=== PATIENT | male | born 1955 | race Caucasian/White ===

== ENCOUNTER 2019-05-13 15:09 | Inpatient (IN) | payer MEDICARE ==
[~2019-05-13] VITALS: Ht 177.8 cm; Wt 90.7 kg
[2019-05-13] MEDS ORDERED: TRAZODONE 150150 M1 PO (15:23)
[2019-05-13] MEDS ORDERED: LISINOPRIL20 MG PO (15:23)
[2019-05-13] MEDS ORDERED: DICLOFENAC SODI25 MG PO (15:24)
[2019-05-13] MEDS ORDERED: LIPITOR 20 MG T20 M1 PO (15:25)
[2019-05-13 15:38] LABS: BE -1.2 mmol/L (-2 to +3); PO2 70.8 mmHg (75.0-100.0); pH 7.355 (7.340-7.450)
[2019-05-13 15:58] LABS: ABSOLUTE BASOPHILS 0.1 thou/uL (0.0-0.2); ABSOLUTE EOSINOPHILS 0.1 thou/uL (0.0-0.7); ABSOLUTE LYMPHOCYTES 1.5 thou/uL (0.8-5.3); ABSOLUTE MONOCYTES 0.6 thou/uL (0.0-1.2); ABSOLUTE NEUTROPHILS 4.2 thou/uL (1.6-8.1); EOSINOPHILS 1.6 %; HEMATOCRIT 44.8 % (42.0-52.0); HEMOGLOBIN 15.5 gm/dL (14.0-18.0); LYMPHOCYTES 22.8 %; MCH 32.7 pg (26.0-34.0); MCHC 34.7 g/dL (28.0-37.0); MCV 94.2 fL (80.0-100.0); MONOCYTES 9.7 %; MPV 6.9 fl. (7.2-11.1); NUCLEATED RBCS 0 /100WBC; PLATELET COUNT* 237 thou/uL (150-400); POLYS 64.9 %; RBC 4.76 mil/uL (4.50-6.00); RDW-CV 13.9 % (10.5-14.5); WBC 6.5 thou/uL (4.0-11.0)
[2019-05-13 16:06] LABS: CALCIUM 8.1 mg/dL (8.5-10.1); CREATININE 0.8 mg/dL (0.6-1.3); POTASSIUM 3.7 mmol/L (3.5-5.1)
[2019-05-13 16:16] LABS: ALBUMIN 3.7 g/dL (3.4-5.0); TOTAL BILIRUBIN 0.2 mg/dL (<0.1-1.0); TOTAL PROTEIN 7.3 g/dL (6.4-8.2)
[2019-05-13 16:21] LABS: URINE BILIRUBIN NEGATIVE (Negative); URINE BLOOD NEGATIVE (Negative); URINE CLARITY CLEAR; URINE COLOR YELLOW; URINE GLUCOSE-RANDOM NEGATIVE (Negative); URINE KETONES NEGATIVE (Negative); URINE LEUKOCYTES-REFLEX NEGATIVE (Negative); URINE NITRITE-REFLEX NEGATIVE (Negative); URINE PROTEIN NEGATIVE (Negative); URINE SPECIFIC GRAVITY <= 1.005 (1.005-1.030); URINE UROBILINOGEN 0.2 E.U./dl (0.2-1.0)
[2019-05-13 16:22] LABS: ALCOHOL 272 mg/dL (<10); SALICYLATE < 2.8 mg/dL (2.8-20.0)
[2019-05-13 16:23] LABS: ACETAMINOPHEN < 2 ug/mL (10-30)
[2019-05-13 16:30] LABS: AMP/METHAMP Negative (Negative); BARBITURATES Negative (Negative); BENZODIAZEPINES POSITIVE (Negative); COCAINE Negative (Negative); METHADONE Negative (Negative); OPIATES Negative (Negative); PCP Negative (Negative); THC POSITIVE (Negative)
[2019-05-13 21:13] VITALS: BP 114/76
[2019-05-13 23:56] VITALS: BP 145/86
[2019-05-14 04:00] VITALS: BP 168/94
[2019-05-14 04:12] LABS: HEMOGLOBIN 14.7 gm/dL (14.0-18.0); MCH 32.8 pg (26.0-34.0); MCV 93.9 fL (80.0-100.0); MPV 6.7 fl. (7.2-11.1); RBC 4.47 mil/uL (4.50-6.00); RDW-CV 14.1 % (10.5-14.5); WBC 6.5 thou/uL (4.0-11.0)
[2019-05-14 04:40] LABS: CALCIUM 8.1 mg/dL (8.5-10.1); CREATININE 0.9 mg/dL (0.6-1.3); MAGNESIUM 1.9 mg/dL (1.8-2.4); POTASSIUM 3.5 mmol/L (3.5-5.1)
--- NOTE | 2019-05-14 07:15 | NUR ---
CHANGE OF SHIFT, BEDSIDE REPORT GIVEN PATIENT SEEN AT BEDSIDE, IN BED RESTING AND WATCHING TV ASSUMED PATIENT CARE
--- NOTE | 2019-05-14 07:55 | NUR ---
Shift uneventful. Pt is aox4, running NSR on telemetry, respirations are even and unlabored on room air. Pt is medically stable at this time.
[2019-05-14 08:00] VITALS: BP 175/88
--- NOTE | 2019-05-14 10:46 | EKG ---
[place] [address] ELECTROCARDIOGRAM REPORT Name: KRISTOPHER ARIAS Room: [address] ADM IN .R.#: [id number] Admission: 05/13/19 Attend Phys: Felicia Hutchins, Discharge: Date of : 53 Date of Service: 05/13/19 1517 Report #: [id number] THIS REPORT FOR: //name// [facility] ED Test Date: 2019-05-13 Test Time: 15:17:11 Pat Name: KRISTOPHER ARIAS Department: Room: [facility] Gender: M [employer] Hand: [facility] : 1955 Requested By: Jose Gillespie Order Number: [id number] MD: Ulysses Villavicencio Measurements Intervals [place] Rate: 72 P: 30 MA: 198 QRS: 1 QRSD: 103 T: 25 QT: 414 QTc: 454 Interpretive Statements Sinus rhythm Probable left atrial enlargement RSR' in V1 or V2, probably normal variant Baseline wander in lead(s) V4 No previous ECG available for comparison Electronically Signed On 05-14-2019 10:45:08 CDT by Ulysses Villavicencio [email or web address] <ELECTRONICALLY SIGNED> By: Ulysses Villavicencio MD, [facility] 05/14/19 1045 1517 1517 Ulysses Villavicencio MD, [facility] /EPI
[2019-05-14 12:00] VITALS: BP 178/82
[2019-05-14 14:00] VITALS: BP 163/79
--- NOTE | 2019-05-14 14:57 | NUR ---
Pt is A&O. Resides at home alone. Independent. Pt uses a cane for community distances. No hx of HH or SNF. Pt states that he is still grieving the loss of his about 16 years ago. CM to provide Pt with [facility] info at [facility]. Following.
[2019-05-14 20:00] VITALS: BP 143/74
[2019-05-15 00:26] VITALS: BP 188/77
[2019-05-15 04:25] VITALS: BP 121/83; BP 162/93
--- NOTE | 2019-05-15 06:42 | NUR ---
Shift uneventful. Pt is aox4, pt scoring 6-7 on CIWAs, running NSR on telemetry, respirations are even and unlabored on room air. Pt is medically stable at this time.
[2019-05-15 07:45] VITALS: BP 169/90
[2019-05-15 12:00] VITALS: BP 159/75
[2019-05-15 13:08] VITALS: BP 169/90
--- NOTE | 2019-05-15 15:57 | NUR ---
discharge to home instruction given, acknowledged, signed copies given iv and heart monitor removed personal belongigngs returned patient assisted out via [facility] to [facility]
== END 2019-05-15 16:10 | disposition home or self-care (01) | DRG 92 ==
LOC: M.ERS 15:09 → M.2W 17:38 → M.TBA-ER 17:38 → M.2W 21:32
PROVIDERS: Emergency Medicine; ADMIT Internal Medicine
DX: G92 Toxic encephalopathy (principal); R65.10 Systemic inflammatory response syndrome (SIRS) of non-infectious origin without acute organ dysfunction; F10.129 Alcohol abuse with intoxication, unspecified; F32.9 Major depressive disorder, single episode, unspecified; Z79.899 Other long term (current) drug therapy